=== PATIENT | male | born 1960 | race African-American/Black ===

== ENCOUNTER 2019-08-24 07:16 | Emergency (ER) | payer MEDICAID ==
[~2019-08-24] VITALS: Ht 180.3 cm; Wt 68.1 kg
[2019-08-24 08:42] LABS: BASOPHILS % 0.4 % (0.0-2.0); EOSINOPHILS % 0.1 % (0.0-5.0); HEMATOCRIT. 36.4 % (42.0-52.0); HEMOGLOBIN. 12.5 g/dL (14.0-18.0); LYMPHOCYTES % 16.1 % (20.0-50.0); MEAN CORPUSCULAR HEMOGLOBIN 31.2 pg (28.0-32.0); MEAN CORPUSCULAR VOLUME 90.3 fL (80.0-94.0); MEAN PLATELET VOLUME 7.6 fl (7.4-10.4); MONOCYTES % 6.1 % (2.0-8.0); NEUTROPHILS % 77.3 % (40.0-76.0); PLATELET 312 x1000/uL (130-400); RED BLOOD CELL COUNT 4.03 mill/uL (4.7-6.1)
[2019-08-24 08:51] LABS: CHLORIDE 104 mEq/L (98-107)
[2019-08-24 09:51] VITALS: BP 130/80
== END 2019-08-24 10:00 | disposition home or self-care (01) ==
LOC: ER 07:36
DX: E11.649 Type 2 diabetes mellitus with hypoglycemia without coma (principal); I10 Essential (primary) hypertension
CPT/HCPCS: 36415; 71045; 80053; 82962; 83880; 84484; 85025; 93005; 99285